=== PATIENT | male | born 1975 | race African-American/Black ===

== ENCOUNTER 2022-04-08 10:00 | Emergency (ER) | payer OTHER ==
[~2022-04-08] VITALS: Ht 162.6 cm; Wt 63.6 kg
[~2022-04-08 10:00] MED LIST: FLEXERIL OR; KETOROLAC60 MG/2 ML IJ; NAPROSYN500 MG PO; TRAMADOL HCL50 MG PO
[2022-04-08 10:07] VITALS: BP 146/93
[2022-04-08] MEDS ORDERED: CEPHALEXIN500 M1 PO (10:26)
[2022-04-08 11:00] VITALS: BP 146/93
== END 2022-04-08 11:07 | disposition home or self-care (01) | DRG 605 ==
LOC: ED 10:00
DX: S61.411A Laceration without foreign body of right hand, initial encounter (principal); W26.0XXA Contact with knife, initial encounter

== ENCOUNTER 2022-04-18 10:42 | Emergency (ER) | payer OTHER ==
[~2022-04-18] VITALS: Ht 162.6 cm; Wt 70.0 kg
[~2022-04-18 10:42] MED LIST changes: +CEPHALEXIN500 M1 PO
[2022-04-18 12:29] VITALS: BP 139/81
== END 2022-04-18 12:30 | disposition home or self-care (01) | DRG 950 ==
LOC: ED 10:42
DX: S61.411D Laceration without foreign body of right hand, subsequent encounter (principal); X58.XXXD Exposure to other specified factors, subsequent encounter